=== PATIENT | male | born 1955 | race African-American/Black ===

== ENCOUNTER 2020-04-02 19:54 | Observation (INO) ==
[2020-04-02 20:38] LABS: Apearance,Urine CLOUDY (Clear); Bilirubin,Urine Negative (Negative); Blood, Urine Large mg/dL (Negative); Glucose,Urine (UA) >=500 mg/dL (Negative); Ketones,Urine Negative (Negative); Mucus,Urine Occasional /LPF (Occasional); Nitrite,Urine Negative (Negative); Protein,Urine 100 MG/DL; RBC,Urine 1374 /HPF (0-4); Squamous Epithelial Cell,Urine Occasional /HPF (0-10); Urine Color Yellow (Yellow); Urine Specific Gravity 1.025 (1.001-1.035); Urine Urobilinogen < 2.0 EU/DL (0.2-1.0)
[2020-04-03] MEDS ORDERED: HYDROmorphone 2 MG/1 ML VIAL IV STA (00:35)
[2020-04-03] MEDS ORDERED: SODIUM CHLORIDE 0.9% 1,000 ML IV STA (00:35)
[2020-04-03] MEDS ORDERED: KETOROLAC 30 MG/1 ML VIAL IV STA (00:35)
[2020-04-03] MEDS ORDERED: ONDANSETRON 4 MG/2 ML VIAL IV STA (00:35)
[2020-04-03 01:43] LABS: Basophils # 0.1 10*3/uL (0.0-0.2); Eosinophils # 0.2 10*3/uL (0.0-0.87); Eosinophils % 2.1 % (0.00-10.9); Hematocrit 47.6 VOL% (42.0-52.0); Hemoglobin 16.1 GM/DL (14.0-18.0); Immature Granulocytes % 0.4 %; Immature Granulocytes Absolute 0.03 #; Lymphocytes # 2.5 10*3/uL (1.4-4.0); Mean Corpuscular HGB Conc 33.8 GM/DL (32-36); Mean Corpuscular Volume 84.1 FL (87-102); Mean Platelet Volume 10.1 FL (9.6-12.0); Monocytes % 6.4 % (1.7-12.7); Neutrophils % 56.1 % (38.7-73.9); Platelet Count 225 T/CUMM (130-400); Red Blood Count 5.66 MC/CUMM (3.8-5.5); Red Cell Distribution Width 11.9 % (9.3-17.3); White Blood Count 7.2 T/CUMM (4-12)
[2020-04-03 02:12] LABS: Albumin 3.6 G/DL (3.4-5.0); Bilirubin,Total 0.9 MG/DL (0.2-1.0); Total Protein 8.8 G/DL (6.4-8.3)
[2020-04-03] MEDS ORDERED: DEXTROSE 50% 25 GM/50 ML VIAL IV PRN (05:37)
[2020-04-03] MEDS ORDERED: ONDANSETRON 4 MG/2 ML VIAL IV PRN (05:37)
[2020-04-03] MEDS ORDERED: MORPHINE 4 MG/1 ML VIAL IV PRN (05:37)
[2020-04-03] MEDS ORDERED: ACETAMINOPHEN 325 MG TABLET PO PRN (05:37)
[2020-04-03] MEDS ORDERED: DOCUSATE SODIUM 100 MG CAPSULE PO PRN (05:37)
[2020-04-03] MEDS ORDERED: GLUCAGON 1 MG VIAL IM PRN (05:37)
[2020-04-03] MEDS: SODIUM CHLORIDE 0.9% 1,000 ML IV SCH ×2 (08:37→16:21)
[2020-04-03] MEDS: INSULIN LISPRO 100 UNIT/ML SUBCUT SCH ×4 (08:46→21:15)
[2020-04-03] MEDS: cefTRIAXone 1,000 MG in SYRINGE 1 EACH IV SCH (11:49)
[2020-04-03] MEDS: INSULIN GLARGINE 100 UNIT/ML SUBCUT SCH (16:22)
[2020-04-03] MEDS: LATANOPROST 0.005% OPH SOLN 2.5 ML BOTTLE BOTH EYES SCH (21:11)
[2020-04-03] MEDS: SIMVASTATIN 20 MG TABLET PO SCH (21:11)
[2020-04-04] MEDS: SODIUM CHLORIDE 0.9% 1,000 ML IV SCH (02:00)
[2020-04-04 06:19] LABS: Basophils # 0.1 10*3/uL (0.0-0.2); Basophils % 0.8 % (0.0-0.8); Eosinophils # 0.1 10*3/uL (0.0-0.87); Eosinophils % 2.3 % (0.00-10.9); Hematocrit 42.5 VOL% (42.0-52.0); Hemoglobin 14.4 GM/DL (14.0-18.0); Immature Granulocytes % 0.3 %; Immature Granulocytes Absolute 0.02 #; Lymphocytes # 1.9 10*3/uL (1.4-4.0); Lymphocytes % 31.6 % (21.2-54.2); Mean Corpuscular HGB Conc 33.9 GM/DL (32-36); Mean Corpuscular Volume 84.3 FL (87-102); Monocytes % 7.4 % (1.7-12.7); Neutrophils % 57.6 % (38.7-73.9); Platelet Count 181 T/CUMM (130-400); Red Blood Count 5.04 MC/CUMM (3.8-5.5); Red Cell Distribution Width 11.9 % (9.3-17.3); White Blood Count 6.1 T/CUMM (4-12)
[2020-04-04 06:37] LABS: Calcium 8.4 MG/DL (8.5-10.1); Osmolality,Calculated 276.4 MOS/KG (273-304)
[2020-04-04 07:02] LABS: Calcium 8.3 MG/DL (8.5-10.1)
[2020-04-04 07:04] LABS: Osmolality,Calculated 277.4 MOS/KG (273-304)
[2020-04-04] MEDS ORDERED: POTASSIUM CHLORIDE 20 MEQ TABLET PO ONE (09:05)
[2020-04-04] MEDS ORDERED: PNEUMOCOCCAL VACCINE (23 VALENT) 0.5 ML VIAL IM ONE (10:00)
[2020-04-04] MEDS: PANTOPRAZOLE 40 MG TABLET PO SCH (10:08)
[2020-04-04] MEDS: METOPROLOL SUCCINATE XL 25 MG TABLET PO SCH (10:08)
[2020-04-04] MEDS: INSULIN LISPRO 100 UNIT/ML SUBCUT SCH ×4 (10:09→22:14)
[2020-04-04] MEDS: cefTRIAXone 1,000 MG in SYRINGE 1 EACH IV SCH (12:27)
[2020-04-04] MEDS ORDERED: MAGNESIUM HYDROXIDE SUSP 30 ML UDCUP PO PRN (12:43)
[2020-04-04] MEDS: PHENAZOPYRIDINE 95 MG TABLET PO SCH (17:26)
[2020-04-04] MEDS: INSULIN GLARGINE 100 UNIT/ML SUBCUT SCH (17:26)
[2020-04-04] MEDS: SIMVASTATIN 20 MG TABLET PO SCH (21:35)
[2020-04-04] MEDS: LATANOPROST 0.005% OPH SOLN 2.5 ML BOTTLE BOTH EYES SCH (21:35)
[2020-04-05 06:28] LABS: Calcium 8.8 MG/DL (8.5-10.1); Osmolality,Calculated 278.4 MOS/KG (273-304)
[2020-04-05 07:48] VITALS: BP 138/83
[2020-04-05] MEDS: SODIUM CHLORIDE 0.9% 1,000 ML IV SCH (08:38)
[2020-04-05] MEDS: INSULIN LISPRO 100 UNIT/ML SUBCUT SCH (08:38)
[2020-04-05] MEDS: PHENAZOPYRIDINE 95 MG TABLET PO SCH (09:00)
[2020-04-05] MEDS: PANTOPRAZOLE 40 MG TABLET PO SCH (09:00)
[2020-04-05] MEDS: METOPROLOL SUCCINATE XL 25 MG TABLET PO SCH (09:00)
[2020-04-05] MEDS ORDERED: TAMSULOSIN 0.4 MG CAPSULE PO SCH (09:00)
== END 2020-04-05 10:41 | disposition home or self-care (01) ==
LOC: N.ED 19:54 → N.EDINP 19:54 → SUATTDRO 04-03 04:12 → N.EDINP 04-03 06:30 → N.TELES 04-03 06:36
PROVIDERS: ADMIT Internal Medicine; ATTEND Internal Medicine

== ENCOUNTER 2021-03-18 06:44 | Inpatient (IN) ==
[~2021-03-18 06:44] MED LIST: ACETAMINOPHEN 325 MG TABLET PO PRN; ONDANSETRON 4 MG/2 ML VIAL IV PRN; PROMETHAZINE 25 MG/1 ML VIAL IM PRN; SIMETHICONE CHEW 80 MG TABLET PO PRN; SODIUM CHLORIDE 0.9% 1,000 ML IV SCH
[2021-03-18] MEDS ORDERED: PROMETHAZINE 25 MG/1 ML VIAL IM PRN (07:00)
[2021-03-18] MEDS ORDERED: ONDANSETRON 4 MG/2 ML VIAL IV PRN (07:00)
[2021-03-18] MEDS ORDERED: SIMETHICONE CHEW 80 MG TABLET PO PRN (07:00)
[2021-03-18] MEDS ORDERED: ACETAMINOPHEN 325 MG TABLET PO PRN (07:00)
[2021-03-18 08:17] LABS: Basophils # 0.1 10*3/uL (0.0-0.2); Eosinophils # 0.2 10*3/uL (0.0-0.87); Eosinophils % 3.4 % (0.00-10.9); Hematocrit 49.3 VOL% (42.0-52.0); Hemoglobin 16.4 GM/DL (14.0-18.0); Immature Granulocytes % 0.4 %; Immature Granulocytes Absolute 0.02 #; Lymphocytes # 1.6 10*3/uL (1.4-4.0); Lymphocytes % 31.7 % (21.2-54.2); Mean Corpuscular HGB Conc 33.3 GM/DL (32-36); Mean Corpuscular Volume 85.7 FL (87-102); Mean Platelet Volume 9.9 FL (9.6-12.0); Monocytes % 6.9 % (1.7-12.7); Neutrophils % 56.6 % (38.7-73.9); Platelet Count 204 T/CUMM (130-400); Red Blood Count 5.75 MC/CUMM (3.8-5.5); Red Cell Distribution Width 11.9 % (9.3-17.3)
[2021-03-18 08:41] LABS: Albumin 3.7 G/DL (3.4-5.0); Bilirubin,Total 1.3 MG/DL (0.20-1.00); Calcium 9.4 MG/DL (8.5-10.1); Potassium 4.1 MMOL/L (3.5-5.1); Total Protein 8.5 G/DL (6.4-8.2)
[2021-03-18] MEDS: SODIUM CHLORIDE 0.9% 1,000 ML IV SCH (10:05)
[2021-03-18 11:21] LABS: Risk Ratio 3.78; VLDL Cholesterol 39.8 MG/DL
[2021-03-18] MEDS: METOPROLOL SUCCINATE XL 25 MG TABLET PO SCH (14:00)
[2021-03-18] MEDS: INSULIN GLARGINE 100 UNIT/ML SUBCUT SCH (18:59)
[2021-03-18] MEDS: SIMVASTATIN 20 MG TABLET PO SCH (20:34)
[2021-03-18] MEDS: LATANOPROST 0.005% OPH SOLN 2.5 ML BOTTLE BOTH EYES SCH (20:34)
[2021-03-18] MEDS: TRAVOPROST 0.004% OPH SOLN 2.5 ML BOTTLE BOTH EYES SCH (20:34)
[2021-03-18 23:33] LABS: Bilirubin,Urine Negative (Negative); Blood, Urine Negative (Negative); Glucose,Urine (UA) >=500 mg/dL (Negative); Ketones,Urine Negative (Negative); Mucus,Urine Occasional /LPF (Occasional); Nitrite,Urine Negative (Negative); Protein,Urine Negative; RBC,Urine <1 /HPF (0-4); Squamous Epithelial Cell,Urine Occasional /HPF (0-10); Urine Appearance CLEAR (Clear); Urine Color Straw (Yellow); Urine Specific Gravity 1.033 (1.001-1.035); Urine Urobilinogen < 2.0 EU/DL (0.2-1.0)
[2021-03-19] MEDS ORDERED: ALVIMOPAN 12 MG CAPSULE PO ONE (06:00)
[2021-03-19] MEDS: SODIUM CHLORIDE 0.9% 1,000 ML IV SCH ×2 (06:05→12:40)
[2021-03-19] MEDS: METOPROLOL SUCCINATE XL 25 MG TABLET PO SCH ×2 (06:12→09:00)
[2021-03-19] MEDS ORDERED: DEXAMETHASONE 4 MG/1 ML VIAL ONE (06:34)
[2021-03-19] MEDS ORDERED: ROPIVACAINE 0.5% 30 ML VIAL ONE ×3 (06:34→06:43)
[2021-03-19] MEDS ORDERED: fentaNYL 100 MCG/2 ML VIAL ONE ×2 (06:34→08:42)
[2021-03-19] MEDS ORDERED: MIDAZOLAM 2 MG/2 ML VIAL ONE (06:34)
[2021-03-19] MEDS ORDERED: LIDOCAINE 1% 5 ML VIAL ONE (06:34)
[2021-03-19] MEDS ORDERED: cefTRIAXone 1,000 MG in SODIUM CHLORIDE 0.9% 100 ML IV ONE ×3 (07:23→15:21)
[2021-03-19] MEDS ORDERED: cefTRIAXone 1,000 MG VIAL ONE (07:25)
[2021-03-19] MEDS ORDERED: INSULIN NPH/REGULAR 70/30 100 UNIT/ML SUBCUT SCH (07:30)
[2021-03-19] MEDS ORDERED: SEVOFLURANE 1 UNIT/15 MINUTE INH ONE ×6 (08:41→09:31)
[2021-03-19] MEDS ORDERED: ROCURONIUM 50 MG/5 ML VIAL IV ONE (08:41)
[2021-03-19] MEDS ORDERED: SUCCINYLCHOLINE 200 MG/10 ML VIAL ONE (08:41)
[2021-03-19] MEDS ORDERED: LABETALOL 20 MG/4 ML SYRINGE IV ONE (08:41)
[2021-03-19] MEDS ORDERED: PHENYLEPHRINE 1 MG/10 ML SYRINGE IV ONE (08:41)
[2021-03-19] MEDS ORDERED: propofoL 200 MG/20 ML VIAL IV ONE (08:41)
[2021-03-19] MEDS ORDERED: SUGAMMADEX 200 MG/2 ML VIAL IV ONE (10:01)
[2021-03-19] MEDS ORDERED: ONDANSETRON 4 MG/2 ML VIAL ONE (10:01)
[2021-03-19 10:15] LABS: Bilirubin,Urine Negative (Negative); Blood, Urine Small mg/dL (Negative); Glucose,Urine (UA) >=500 mg/dL (Negative); Ketones,Urine 20 mg/dL (Negative); Mucus,Urine Occasional /LPF (Occasional); Nitrite,Urine Negative (Negative); Protein,Urine Negative; RBC,Urine 2 /HPF (0-4); Squamous Epithelial Cell,Urine Occasional /HPF (0-10); Urine Appearance CLEAR (Clear); Urine Color Yellow (Yellow); Urine Specific Gravity 1.024 (1.001-1.035); Urine Urobilinogen < 2.0 EU/DL (0.2-1.0)
[2021-03-19] MEDS ORDERED: HYDROmorphone 2 MG/1 ML VIAL ONE (10:54)
[2021-03-19] MEDS ORDERED: ONDANSETRON 4 MG/2 ML VIAL IV PRN (10:55)
[2021-03-19] MEDS ORDERED: HYDROmorphone 2 MG/1 ML VIAL IV PRN ×2 (10:55→15:14)
[2021-03-19 12:06] LABS: Basophils % 0.2 % (0.0-0.8); Eosinophils % 0.1 % (0.00-10.9); Hematocrit 45.4 VOL% (42.0-52.0); Hemoglobin 15.2 GM/DL (14.0-18.0); Immature Granulocytes % 0.7 %; Immature Granulocytes Absolute 0.06 #; Lymphocytes # 0.6 10*3/uL (1.4-4.0); Lymphocytes % 7.3 % (21.2-54.2); Mean Corpuscular HGB Conc 33.5 GM/DL (32-36); Mean Corpuscular Volume 86.8 FL (87-102); Mean Platelet Volume 9.6 FL (9.6-12.0); Monocytes % 1.5 % (1.7-12.7); Neutrophils % 90.2 % (38.7-73.9); Platelet Count 170 T/CUMM (130-400); Red Blood Count 5.23 MC/CUMM (3.8-5.5); Red Cell Distribution Width 11.8 % (9.3-17.3); White Blood Count 8.1 T/CUMM (4-12)
[2021-03-19 12:22] LABS: Calcium 8.4 MG/DL (8.5-10.1); Osmolality,Calculated 283.8 MOS/KG (273-304); Potassium 4.5 MMOL/L (3.5-5.1)
[2021-03-19] MEDS: ACETAMINOPHEN 325 MG TABLET PO SCH ×3 (12:44→23:45)
[2021-03-19] MEDS ORDERED: DEXTROSE 50% 25 GM/50 ML VIAL IV PRN (13:34)
[2021-03-19] MEDS ORDERED: GLUCAGON 1 MG VIAL IM PRN (13:34)
[2021-03-19] MEDS: oxyCODONE/ACETAMINOPHEN 5-325 MG TABLET PO PRN ×2 (14:35→21:08)
[2021-03-19] MEDS: INSULIN GLARGINE 100 UNIT/ML SUBCUT SCH (17:40)
[2021-03-19] MEDS: INSULIN LISPRO 100 UNIT/ML SUBCUT SCH ×2 (17:42→21:05)
[2021-03-19] MEDS: TRAVOPROST 0.004% OPH SOLN 2.5 ML BOTTLE BOTH EYES SCH (20:21)
[2021-03-19] MEDS: LATANOPROST 0.005% OPH SOLN 2.5 ML BOTTLE BOTH EYES SCH (20:21)
[2021-03-19] MEDS: ALVIMOPAN 12 MG CAPSULE PO SCH (20:21)
[2021-03-19] MEDS: SIMVASTATIN 20 MG TABLET PO SCH (20:21)
[2021-03-20] MEDS: SODIUM CHLORIDE 0.9% 1,000 ML IV SCH (00:52)
[2021-03-20] MEDS: ACETAMINOPHEN 325 MG TABLET PO SCH ×3 (04:59→18:28)
[2021-03-20 06:02] LABS: Basophils % 0.5 % (0.0-0.8); Eosinophils % 0.4 % (0.00-10.9); Hematocrit 42.5 VOL% (42.0-52.0); Hemoglobin 14.4 GM/DL (14.0-18.0); Immature Granulocytes % 0.6 %; Immature Granulocytes Absolute 0.05 #; Lymphocytes # 1.5 10*3/uL (1.4-4.0); Lymphocytes % 18.1 % (21.2-54.2); Mean Corpuscular HGB Conc 33.9 GM/DL (32-36); Mean Corpuscular Volume 85.5 FL (87-102); Mean Platelet Volume 9.7 FL (9.6-12.0); Monocytes % 7.6 % (1.7-12.7); Neutrophils % 72.8 % (38.7-73.9); Platelet Count 167 T/CUMM (130-400); Red Blood Count 4.97 MC/CUMM (3.8-5.5); Red Cell Distribution Width 11.8 % (9.3-17.3); White Blood Count 8.5 T/CUMM (4-12)
[2021-03-20 06:26] LABS: Calcium 8.4 MG/DL (8.5-10.1); Osmolality,Calculated 281.5 MOS/KG (273-304); Potassium 3.5 MMOL/L (3.5-5.1)
[2021-03-20] MEDS: ALVIMOPAN 12 MG CAPSULE PO SCH ×2 (08:41→20:44)
[2021-03-20] MEDS: DOCUSATE SODIUM 100 MG CAPSULE PO SCH ×2 (08:42→20:44)
[2021-03-20] MEDS: METOPROLOL SUCCINATE XL 25 MG TABLET PO SCH (08:42)
[2021-03-20] MEDS ORDERED: cefTRIAXone 1,000 MG in SODIUM CHLORIDE 0.9% 100 ML IV SCH (09:00)
[2021-03-20] MEDS ORDERED: MAGNESIUM SULF RIDER 2 GM/50 ML PREMIX IV ONE (10:55)
[2021-03-20] MEDS ORDERED: POTASSIUM CHLORIDE 20 MEQ TABLET PO ONE (10:55)
[2021-03-20] MEDS: INSULIN LISPRO 100 UNIT/ML SUBCUT SCH ×5 (12:18→23:31)
[2021-03-20] MEDS: lisinopriL 2.5 MG TABLET PO SCH (12:33)
[2021-03-20] MEDS: INSULIN GLARGINE 100 UNIT/ML SUBCUT SCH (18:02)
[2021-03-20] MEDS: SIMVASTATIN 20 MG TABLET PO SCH (20:44)
[2021-03-20] MEDS: LATANOPROST 0.005% OPH SOLN 2.5 ML BOTTLE BOTH EYES SCH (20:46)
[2021-03-20] MEDS: TRAVOPROST 0.004% OPH SOLN 2.5 ML BOTTLE BOTH EYES SCH (20:46)
[2021-03-21] MEDS: ACETAMINOPHEN 325 MG TABLET PO SCH ×3 (00:39→12:28)
[2021-03-21 04:34] LABS: Calcium 8.5 MG/DL (8.5-10.1); Osmolality,Calculated 272.7 MOS/KG (273-304)
[2021-03-21] MEDS: SODIUM CHLORIDE 0.9% 1,000 ML IV SCH (05:49)
[2021-03-21] MEDS: INSULIN LISPRO 100 UNIT/ML SUBCUT SCH ×3 (08:14→15:48)
[2021-03-21] MEDS: ALVIMOPAN 12 MG CAPSULE PO SCH (08:56)
[2021-03-21] MEDS: lisinopriL 2.5 MG TABLET PO SCH (08:56)
[2021-03-21] MEDS: DOCUSATE SODIUM 100 MG CAPSULE PO SCH (08:56)
[2021-03-21] MEDS: METOPROLOL SUCCINATE XL 25 MG TABLET PO SCH (08:57)
[2021-03-21 16:22] VITALS: BP 135/80
[2021-03-21] MEDS ORDERED: INSULIN GLARGINE 100 UNIT/ML SUBCUT SCH (17:00)
== END 2021-03-21 16:30 | disposition home health service (06) | DRG 657 ==
LOC: N.ADMINP 06:44 → N.4E 03-20 18:29
PROVIDERS: ADMIT Surgery; ATTEND Surgery